=== PATIENT | male | born 1960 | race African-American/Black ===

== ENCOUNTER 2022-03-11 14:29 | Emergency (ER) | payer SELFPAY ==
[~2022-03-11] VITALS: Ht 172.7 cm; Wt 73.0 kg
[2022-03-11 16:19] LABS: BASOPHILS % 0.7 % (0.0-2.0); EOSINOPHILS % 1.1 % (0.0-5.0); HEMATOCRIT. 32.7 % (42.0-52.0); HEMOGLOBIN. 10.2 g/dL (14.0-18.0); LYMPHOCYTES % 23.9 % (20.0-50.0); MEAN CORPUSCULAR HEMOGLOBIN 26.8 pg (28.0-32.0); MEAN CORPUSCULAR VOLUME 85.8 fL (80.0-94.0); MEAN PLATELET VOLUME 6.5 fl (7.4-10.4); MONOCYTES % 6.3 % (2.0-8.0); PLATELET 187 x1000/uL (130-400); RED BLOOD CELL COUNT 3.81 mill/uL (4.7-6.1); RED CELL DISTRIBUTION WIDTH 22.9 % (11.6-14.6)
[2022-03-11 16:24] LABS: CHLORIDE 110 mEq/L (98-107)
[2022-03-11 16:34] LABS: ETHANOL BLOOD 326 mg/dL
[2022-03-11 16:41] LABS: PLATELET ESTIMATE NORMAL
[2022-03-11 18:18] VITALS: BP 131/87
== END 2022-03-11 18:18 | disposition home or self-care (01) ==
LOC: ER 14:29
DX: T51.0X1A Toxic effect of ethanol, accidental (unintentional), initial encounter (principal); Y92.9 Unspecified place or not applicable
CPT/HCPCS: 36415; 80053; 80320; 85025; 99285; G0480

== ENCOUNTER 2022-07-12 18:48 | Emergency (ER) | payer SELFPAY ==
[~2022-07-12] VITALS: Ht 170.2 cm; Wt 68.0 kg
[2022-07-13 03:00] VITALS: BP 116/74
== END 2022-07-13 03:10 | disposition home or self-care (01) ==
LOC: ER 18:48
DX: F10.229 Alcohol dependence with intoxication, unspecified (principal); Y90.0 Blood alcohol level of less than 20 mg/100 ml
CPT/HCPCS: 70486; 71045; 72170; 99285

== ENCOUNTER 2022-07-14 16:03 | Emergency (ER) | payer SELFPAY ==
[~2022-07-14] VITALS: Ht 172.7 cm; Wt 64.0 kg
[2022-07-14 18:58] LABS: BASOPHILS % 0.8 % (0.0-2.0); EOSINOPHILS % 3.5 % (0.0-5.0); HEMATOCRIT. 30.4 % (42.0-52.0); HEMOGLOBIN. 9.6 g/dL (14.0-18.0); LYMPHOCYTES % 32.9 % (20.0-50.0); MEAN CORPUSCULAR HEMOGLOBIN 26.2 pg (28.0-32.0); MEAN CORPUSCULAR VOLUME 83.1 fL (80.0-94.0); MEAN PLATELET VOLUME 6.9 fl (7.4-10.4); MONOCYTES % 5.5 % (2.0-8.0); NEUTROPHILS % 57.3 % (40.0-76.0); PLATELET 149 x1000/uL (130-400); RED BLOOD CELL COUNT 3.66 mill/uL (4.7-6.1); RED CELL DISTRIBUTION WIDTH 21.9 % (11.6-14.6)
[2022-07-14 19:08] LABS: CHLORIDE 104 mEq/L (98-107)
[2022-07-14 19:46] LABS: ETHANOL BLOOD 353 mg/dL
[2022-07-14 22:50] VITALS: BP 103/66
== END 2022-07-14 23:15 | disposition home or self-care (01) ==
LOC: ER 16:03
DX: T51.0X1A Toxic effect of ethanol, accidental (unintentional), initial encounter (principal); Y90.8 Blood alcohol level of 240 mg/100 ml or more; Y92.488 Other paved roadways as the place of occurrence of the external cause
CPT/HCPCS: 36415; 80053; 80320; 85025; 99284; G0480